=== PATIENT | male | born 1990 | race Caucasian/White ===

== ENCOUNTER 2024-02-15 01:04 | Emergency (ER) | payer OTHER, SELFPAY ==
[2024-02-15] VITALS (10 sets, daily range): BP systolic 111–153; BP diastolic 68–97; PULSE 92–202; RESP 18–20; TEMP 36.7; O2SAT 98–100; BMI 27.7
--- NOTE | 2024-02-15 | ECG_ITS ---
Test Reason : techy Blood Pressure : / mmHG Vent. Rate : 123 BPM Atrial Rate : 123 BPM P-R Int : 144 ms QRS Dur : 096 ms QT Int : 310 ms P-R-T Axes : 075 072 074 degrees QTc Int : 443 ms Sinus tachycardia Possible Left atrial enlargement Incomplete right bundle branch block Borderline ECG No previous ECGs available Referred By: Generic ED Physician Electronically Signed By:Alexis Malik
[2024-02-15 01:39] LABS: Basophils Absolute Auto 0.1 X10*3/uL (0.0-0.2); Basophils Percent Auto 0.3 % (0-2); Eosinophils Absolute Auto 0.1 X10*3/uL (0.0-0.4); Eosinophils Percent Auto 0.5 % (0-4); Hematocrit 44.6 % (42.0-52.0); Imm Gran Abs Auto 0.05 X10*3/uL (0.00-0.03); Imm Gran Pct Auto 0.3 % (0.0-0.4); Lymphocytes Absolute Auto 2.2 X10*3/uL (1.2-4.9); Lymphocytes Percent Auto 15.2 % (20-40); MANUAL DIFF FLAG NO; Mean Corpuscular HGB Conc 35.9 g/dl (31.0-36.0); Mean Corpuscular Hemoglobin 29.1 pg (27.0-33.0); Mean Corpuscular Volume 81.2 fL (80.0-98.0); Mean Platelet Volume 8.1 fL (9.4-12.4); Monocytes Absolute Auto 1.2 X10*3/uL (0.1-1.2); Monocytes Percent Auto 8.4 % (2-11); Neutrophils Absolute Auto 10.8 x10*3/uL (2.0-8.3); Neutrophils Percent Auto 75.3 % (45-73); Platelet Count 397 X10*3/uL (160-400); Red Blood Count 5.49 X10*6/uL (4.60-5.80); Red Cell Distribution Width 11.9 % (11.0-16.0); White Blood Count 14.4 X10*3/uL (4.8-10.8)
--- NOTE | 2024-02-15 01:43 | PC.NURSE ---
pt biba from home, a&ox4, respirations even and unlabored. pt reporting taking an edible, which he states he takes every day, when he developed sudden shortness of breath. ems reports on arrival pt was in SVT 220, pt was given 10/06/11 of adenosine in which pt broke into sinus tachy. pt 120s sinus tach on arrival, pt reports dizziness but denies chest pains. ems placed 20G in left hand. ekg obtained, 20G placed in right wrist, labs obtained and sent to lab.
[2024-02-15 01:55] LABS: Alanine Aminotransferase 18 U/L (0-40); Albumin Level 4.7 g/dL (3.5-5.0); Alkaline Phosphatase 53 U/L (39-117); Anion Gap 17 (12-20); Aspartate Amino Transferase 21 U/L (5-37); Bilirubin Total 0.7 mg/dL (0.0-1.0); Blood Urea Nitrogen 14 mg/dL (9-16); Carbon Dioxide 22 mmol/L (22-29); Chloride 100 mmol/L (96-108); Creatinine Clr Calc Pharmacy 113.1; Estimated Glomerular Filt Rate > 60; Glucose Random 132 mg/dL (60-115); Potassium 3.5 mmol/L (3.3-5.1); Sodium 135 mmol/L (135-145); Total Protein 7.4 g/dL (6.5-8.0)
--- NOTE | 2024-02-15 02:11 | ED.ARRPALP ---
HPI - Arrhythmia/Palpitations General Chief Complaint: Arrhythmia/Palpitations Stated Complaint: cp tachy sob Time Seen by Provider: 02/15/24 01:27 Source: patient Mode of arrival: EMS Limitations: no limitations History of Present Illness ED Provider: sundeep NÚÑEZ narrative: Patient's history of anxiety/depression on Wellbutrin with no history of cardiac arrhythmia or palpitation in the past around 19:00 patient noticed palpitation with near-syncope episode EMS came noticed SVT with heart rate in 200 received Adenocard 6 mg then 12 than 12 mg which broke the tachycardia to 120 sinus tachycardia patient feels anxious Related Data Previous Rx's ?Medication ?Instructions ?Recorded metoprolol tartrate 25 mg tablet 25 mg PO DAILY Tachycardia #60 tabs 02/15/24 Allergies Allergy/AdvReac Type Severity Reaction Status Date / Time No Known Allergies Allergy Verified 02/15/24 01:16 Review of Systems Review of Systems: Yes all other systems are reviewed and are negative PMFSH Social History Social History Smoked in Last 30 Days: No Use of substances other than those prescribed or required for medical reasons: Yes Substance Use Type: Marijuana Advance Directives: No Advance Directives Information Provided: No Do you have a plan to hurt others: No Plan Physical Exam Vital Signs: Vital Signs: Last Vital Signs Temp 98.0 F 02/15/24 01:10 Pulse 102 H 02/15/24 06:09 Resp 18 02/15/24 05:58 BP 113/70 02/15/24 05:35 Pulse Ox 98 02/15/24 06:09 O2 Del Method Room Air 02/15/24 06:09 BMI result Body Mass Index 27.7 Appearance: Alert. Oriented X3. No acute distress. Anxious Eyes: PERRLA, No Nystagmus ENT: Pharynx normal. Oral Mucosa moist Neck: Normal inspection. Neck supple. CVS: Sinus tachycardia no murmur rub or gallop. Pulses normal. Respiratory: No respiratory distress. Equal air entry bilateral, no wheezing/rales/rhonchi Abdomen: Soft and nontender. Bowel sounds are present, no mass palpable, no CVA tenderness Skin: Skin warm and dry. Normal skin color. Normal skin turgor. Extremities: No lower extremity edema. No calf tenderness Neuro: Oriented X 3. No motor deficit. No sensory deficit.No cerebellar signs , cranial nerves II-XII intact Medications Administered Discontinued Medications Generic Name Dose Route Start Last Admin Trade Name Lorna PRN Reason Stop Dose Admin Adenosine 6 mg 02/15/24 03:32 02/15/24 03:33 Adenosine 6 Mg/2 Ml Vial IVPUSH 02/15/24 03:33 6 mg STAT STA Administration Sodium Chloride 1,000 mls @ 999 mls/hr 02/15/24 02:14 02/15/24 04:25 Ns IV 02/15/24 03:14 Infused .Q1H1M ONE Infusion Lorazepam 1 mg 02/15/24 02:14 02/15/24 02:29 Lorazepam 2 Mg/Ml Vial IVPUSH 02/15/24 02:15 1 mg ONCE ONE Administration Metoprolol Tartrate 5 mg 02/15/24 03:24 02/15/24 03:33 Metoprolol Tartrate 5 Mg/5 Ml Vial IVPUSH 02/15/24 03:25 5 mg ONCE ONE Administration Protocol Metoprolol Tartrate 25 mg 02/15/24 05:18 02/15/24 05:35 Metoprolol Tartrate 25 Mg Tablet PO 02/15/24 05:19 25 mg ONCE ONE Administration Protocol Medical Decision Making Medical Decision Making MDM Narrative: Patient with increased anxiety depression poor oral intake came with episode of SVT received Adenocard in the ER patient has again heart rate went to 200 range was given 6 mg of Adenocard and back to sinus rhythm during stay in the ER patient received 2 L of IV fluids still heart rate is ranging 100-110 patient advised to follow with psychiatrist about a Wellbutrin use which could cause the tachycardia also advised to drink at least 3 L of fluid a day and will give Lopressor 25 mg twice a day for tachycardia follow with human resources advisor Differential Diagnosis Differential Diagnoses: The differential diagnosis associated with the presentation includes AFib/SVT/sinus tachycardia Lab Data [facility] Lab Attestation statement: I reviewed the patient's lab results. 02/15/24 01:33 02/15/24 01:33 Labs: Lab Results 02/15/24 Range/Units 01:33 WBC 14.4 H (4.8-10.8) X10*3/uL RBC 5.49 (4.60-5.80) X10*6/uL Hgb 16.0 (14.0-18.0) g/dl Hct 44.6 (42.0-52.0) % MCV 81.2 (80.0-98.0) fL MCH 29.1 (27.0-33.0) pg MCHC 35.9 (31.0-36.0) g/dl RDW 11.9 (11.0-16.0) % Plt Count 397 (160-400) X10*3/uL MPV 8.1 L (9.4-12.4) fL Immature Gran % (Auto) 0.3 (0.0-0.4) % Neut % (Auto) 75.3 H (45-73) % Lymph % (Auto) 15.2 L (20-40) % [place] % (Auto) 8.4 (2-11) % Eos % (Auto) 0.5 (0-4) % Baso % (Auto) 0.3 (0-2) % Lymph # (Auto) 2.2 (1.2-4.9) X10*3/uL [place] # (Auto) 1.2 (0.1-1.2) X10*3/uL Eos # (Auto) 0.1 (0.0-0.4) X10*3/uL Baso # (Auto) 0.1 (0.0-0.2) X10*3/uL Abs Immat Gran (auto) 0.05 H (0.00-0.03) X10*3/uL Absolute Neuts (auto) 10.8 H (2.0-8.3) x10*3/uL Absolute Nucleated RBC 0.000 (0.0-0.012) X10*3/uL Nucleated RBC % (auto) 0.0 (0.0-0.2) /100WBC Sodium 135 (135-145) mmol/L Potassium 3.5 (3.3-5.1) mmol/L Chloride 100 (96-108) mmol/L Carbon Dioxide 22 (22-29) mmol/L Anion Gap 17 (12-20) BUN 14 (9-16) mg/dL Creatinine 1.09 (0.5-1.4) mg/dL Estim Creat Clear Calc 113.1 Estimated GFR > 60 Random Glucose 132 H (60-115) mg/dL Calcium 10.0 (8.4-10.2) mg/dL Total Bilirubin 0.7 (0.0-1.0) mg/dL AST 21 (5-37) U/L ALT 18 (0-40) U/L Alkaline Phosphatase 53 (39-117) U/L Troponin I High Sens 33.0 (<3.5-35.0) ng/L Total Protein 7.4 (6.5-8.0) g/dL Albumin 4.7 (3.5-5.0) g/dL Independent Interpretation I performed an independent interpretation of an: EKG Interpretation: Sinus tachycardia heart rate 123 beats per minute normal interval normal axis no acute STT wave changes Critical Care Time Critical Care Time Critical Care Time: Yes Total Critical Care Time: 45 Attestation: The patient was critically ill with a high probability of imminent or life threatening deterioration. I spent greater than 55???minutes of discontinuous time evaluating the patient,delivering critical care at the bedside, discussing and evaluating pertinent data with consultants. Critical care time does not include time spent performing separately billable procedures or teaching. Total time spent performing critical care was 45???minutes. Discharge Plan Discharge Clinical Impression: Sinus tachycardia, Supraventricular tachycardia Patient Disposition: Home, Self-Care Instructions: Supraventricular Tachycardia (ED), Tachycardia (ED) Additional Instructions: Discussed with your psychiatrist about Wellbutrin which you are taking that could be the cause for tachycardia may need to change medication Follow up with human resources advisor Report to the ER if persistent tachycardia more than 120 beats per minute Drink plenty of fluids at least 3 L a day Prescriptions: New metoprolol tartrate 25 mg tablet 25 mg PO DAILY Qty: 60 0RF Referrals: Gabino Fung MD [Physician] - 1 week Print Language: Uzbek
[2024-02-15] MEDS: 0.9 % Sodium Chloride 1,000 ML 999 ML IV (02:28)
[2024-02-15] MEDS: LORazepam 2 MG/ML VIAL 1 MG IVPUSH (02:29)
--- NOTE | 2024-02-15 02:31 | PC.NURSE ---
pt medicated per mar for anxiety at this time.
--- NOTE | 2024-02-15 03:27 | PC.NURSE ---
pt noted to be in SVT 200-202, at bedside, pt medicated per jun.
[2024-02-15] MEDS: Adenosine 6 MG/2 ML VIAL IVPUSH (03:33)
[2024-02-15] MEDS: Metoprolol Tartrate 5 MG/5 ML VIAL IVPUSH (03:33)
--- NOTE | 2024-02-15 03:38 | PC.NURSE ---
pt medicated per mar, pt noted to break and maintain a rhythm of sinus tachy 100-101bpm. pacer pads placed, crash cart at bedside. vss.
--- NOTE | 2024-02-15 04:25 | PC.NURSE ---
pt standing up at bedside, pt maintaining heart rate of 100-102 bpm.
[2024-02-15] MEDS: Metoprolol Tartrate 25 MG TABLET PO (05:35)
--- NOTE | 2024-02-15 06:10 | PC.NURSE ---
pt taken for ambulation trial around ed, pt maintained heart rate between 100-108.
== END 2024-02-15 06:50 | disposition home or self-care (01) ==
PROVIDERS: Emergency Provider Internal Medicine
DX: I47.10 Supraventricular tachycardia, unspecified (principal); I49.9 Cardiac arrhythmia, unspecified; R00.2 Palpitations; R07.89 Other chest pain; R06.02 Shortness of breath; R11.2 Nausea with vomiting, unspecified; F41.9 Anxiety disorder, unspecified; Z79.899 Other long term (current) drug therapy
CPT/HCPCS: 36415; 80053; 84484; 85025; 93005; 96361; 96374; 96375; 99284; 99285; J0153; J2060

== ENCOUNTER → 2024-02-15 01:17 | Outpatient (BNV) | payer OTHER, SELFPAY | PROVIDERS: Emergency Provider Internal Medicine; Visit Provider Internal Medicine Cardiovascular Disease | DX: R00.0 Tachycardia, unspecified (principal) | CPT/HCPCS: 93010 ==

== ENCOUNTER 2024-05-08 14:20 | Outpatient (AMB) | payer OTHER, SELFPAY ==
--- NOTE | 2024-05-08 14:25 | A.OFFVIS_ITS ---
Vital Signs 05/08/24 14:26 Height 6 ft 2 in Weight 204 lb 2.369 oz BMI 26.2 BP 120/60 Blood Pressure Location Lt brachial Position Sitting Pulse 94 Pulse Source Pulse Oximeter Intake Visit Reasons: [facility] [place] [facility] ED follow up (KM) Intake Note: [facility] [place] F/up Erisa Attorney Required: No Accompanied by: Self / Same As Patient Allergies No Known Allergies Allergy (Verified 02/15/24 01:16) Medication List - Last Reconciled 05/08/24 by RACHAEL Catalan bupropion HCl XL 150 mg PO DAILY bupropion HCl XL 300 mg PO DAILY buspirone 15 mg PO BID fluoxetine 60 mg PO QAM metoprolol tartrate 25 mg PO DAILY HPI HPI [facility] [place] [facility] ED follow up (KM): Details: Rafa is a 33-year-old male with past medical history of anxiety/depression, heart palpitations who recently had an episode of heart palpitations that persisted longer than his normal. He was feeling presyncope and called EMS. He was found to have NSVT, rate 220. He was treated with adenosine 6 mg followed by 12 mg with conversion to sinus tachycardia. Was transported to the [facility] emergency room for further evaluation. He was started on metoprolol and r eferred to Cardiology. Today he reports that he has had heart palpitations since he was approximately 13 years old. He has brief episodes of rapid heartbeats that occur randomly and with position changes, that he can usually control with holding his breath. He has never had a formal diagnosis but suspected SVT. 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 In order to better control his episodes he has reduced his caffeine intake to 2 per day. He has not drink alcohol. He recently had high stress levels due to a new work place and had his heart palpitations 3 days in a row. On the 3rd day the episode persisted prompting his EMS call. Once he was treated with adenosine he felt much better. He was discharged with metoprolol 25 mg daily but states that dose was not controlling his episodes. He had his dose increased to 50 mg daily by another provider. This dose has been controlling the palpitations better. When he has the rapid heartbeat his chest feels uncomfortable. He has no other episodes of chest discomfort. No shortness of breath, PND, orthopnea or edema. He has never had syncope before. He has no cardiac history beyond this. His grandfather has AF ib otherwise heart disease does not run in his family. He is on medications for anxiety and depression but tells me he has not had any medication adjustments in over a year. PFSH Family History Maternal Grandmother Paroxysmal A-fib Social History Alcohol intake: never Patient Tobacco Use Status: Never used Tobacco Review of Systems Const All systems reviewed & are unremarkable except as noted in HPI and below Denies chills, Denies fatigue, Denies fever(s), Denies frequent falls, Denies weakness, Denies weight gain and Denies weight loss ENT Denies dizziness Card Denies chest pain, Reports rapid heart rate, Denies leg edema, Denies lightheadedness, Reports palpitations, Denies dyspnea and Denies dyspnea on exertion Resp Denies cough, Denies dyspnea and Denies dyspnea on exertion GI Denies hematochezia Musc Denies abnormal gait, Denies muscle weakness, Denies numbness, Denies radiating pain into limb and Denies tingling Neuro Denies abnormal gait, Denies dizziness, Denies frequent falls, Denies numbness, Denies tingling and Denies weakness Endo Denies fatigue and Reports palpitations Physical Exam Vital Signs: Last Vital Signs Pulse 94 05/08/24 14:26 BP 120/60 05/08/24 14:26 BMI result Body Mass Index 26.2 Const General: cooperative, healthy appearing, comfortable and no acute distress Orientation/consciousness: patient oriented x3 Neck Neck: Yes normal visual inspection Resp Effort & Inspection: normal respiratory effort Auscultation: clear to auscultation bilaterally, no rales, no rhonchi and no wheezes Cardio Jugular venous distension: no JVD Rate: regular rate Rhythm: regular rhythm Heart sounds: S1 normal heart sound present, S2 normal heart sound present, no murmurs and no rubs Neuro General: patient oriented x3 Extrem General: Yes normal to inspection and No no pedal edema Psych Appearance: grossly normal Mental Status: mental status grossly normal Speech and movement: Normal speech and movement present Assessment & Plan Assessment & Plan (1) Supraventricular tachycardia: Code(s): I47.10 - Supraventricular tachycardia, unspecified Category: Medical Plan: History of heart palpitations. His description is consistent with a sudden start and stop of tachycardia. He is typically able to hold his breath and control the episodes. More recently he was under high stress and EMS note indicates that he had a 100 mg edible 1 hour prior to having some palpitations and presyncope. EMS was called and he was noted to have SVT, rate 220. He did require adenosine 6 mg followed by 12 mg to convert the rhythm to sinus tachycardia. ER evaluation showed no acute abnormalities. His EKG there showed sinus tach, possible left atrial enlargement, incomplete right bundle branch block, rate 123. He was discharged with metoprolol tartrate 25 mg once daily. He said he was having breakthrough palpitations and his dose has since been increased to 50 mg daily which is working better. Will have him continue that dose. Reviewed the findings of SVT and he states understanding. Discussed reduction in caffeinated beverages. Reviewed vagal maneuvers. Will check a Holter monitor to assess for recurrent SVT. Will check an echocardiogram to assess for structural heart disease. Will check an exercise stress test to evaluate for any ischemia as he has had discomfort in his chest with his last episode. Plan to review test results and likely send him for SVT ablation. He is agreeable to this plan. Cardiology follow-up 4-6 weeks, sooner if needed (2) Sinus tachycardia: Code(s): R00.0 - Tachycardia, unspecified Category: Medical Plan: As above Plan Time spent on chart review, documentation, interview and assessment Orders: Orders CA stress test Today I47.10 - Supraventricular tachycardia, unspecified CA echo transthoracic complete Today I47.10 - Supraventricular tachycardia, unspecified TSH reflex Free T4 Today I47.10 - Supraventricular tachycardia, unspecified ECG 3 day holter monitor Today I47.10 - Supraventricular tachycardia, unspecified Coding Level of Care Code New Pt Level 4 (43346) Complex EM visit Add On G2211 Diagnoses Supraventricular tachycardia I47.10 Sinus tachycardia R00.0 Time Spent (min) 36
[2024-05-08 14:26] VITALS: BP 120/60; PULSE 94; BMI 26.2
== END 2024-05-08 14:54 | disposition home or self-care (01) ==
PROVIDERS: Visit Provider Nurse Practitioner Family
DX: I47.10 Supraventricular tachycardia, unspecified (principal)
CPT/HCPCS: 99204

== ENCOUNTER → 2024-05-23 08:06 | Outpatient (REF) | payer OTHER, SELFPAY ==
--- NOTE | 2024-05-23 08:11 | CA_ITS ---
Acquisition Time: 2024-05-23 08:42:44 Total Exercise Time: 00:09:42 Test Indications: NSVT Medications: SEE H&P Protocol: CORINA Max HR: 153 BPM 81% of Pred: 187 BPM Max BP: 154/60 mmHG Max Work Load: 11.2 METS Exercise Stress Test with exercise 9 mins 42 secs of Corina Protocol, achieving 81% MPHR, with reports of moderate SOB and mild dizziness, without any arrythmias, with normotensive response to exercise. Without EKG changes meeting criteria for ischemia. In recovery, dizziness resolved quickly and breathing returned to baseline. Test reviewed with Dr. Andino. Referred By: Janice Cerrato Electronically Signed By: Loco Menjivar
--- NOTE | 2024-05-23 08:11 | CA_ITS ---
Transthoracic Echocardiogram Patient (Last, First, Middle): Rafa Jackson, Gender: Male Date of : 1990 Age: 34 Procedure Date: 05/23/2024 Procedure Type: Transthoracic Echocardiogram Location: OP Height: 187.96 cm Weight: 92.53 kg BSA: 2.19 m2 Heart Rate: bpm BP: 120 / 60 mmHg Steel Sash Erector: JOSE MARIA Referring MD: Janice Cerrato SPEED READING TEACHERHugo Symptoms: I47.10 - Supraventricular tachycardia, unspecified Study Quality: Adequate ECG Rhythm: Sinus Conclusions: - The left ventricular systolic function is normal. The visually estimated ejection fraction is between 55-60%. - No obvious valvular pathology seen on this study. Findings Left Ventricle Normal left ventricular cavity size. There is normal left ventricular wall thickness. The left ventricular systolic function is normal. The visually estimated ejection fraction is between 55-60%. There is no evidence of regional wall motion abnormalities. Diastolic function is normal for age. Right Ventricle Normal right ventricular cavity size and systolic function. Atria Both atria are normal in size. Aortic Valve The aortic valve was not well visualized. There is no aortic valve stenosis. There is trace (trivial) aortic valve regurgitation. Mitral Valve The mitral valve appears normal. There is mild mitral valve regurgitation. There is no mitral valve stenosis. Pulmonic Valve The pulmonic valve is likely normal. Tricuspid Valve There is trace tricuspid valve regurgitation. There is no evidence of pulmonary hypertension. Great Vessels The sinuses of valsalva and sino tubular ridge are normal in size. Venous The inferior vena cava is normal in size and collapses greater than 50% with inspiration. Pericardium/Pleural There is no evidence of pericardial effusion. Prior Study Comparison No prior study available for comparison. Recommendations, Care & Conclusions No obvious valvular pathology seen on this study. Measurements 2D Linear Measurements IVSd: 0.81 0.6-0.9/0.6-1.0 cm LVIDd: 4.44 3.9-5.3/4.2-5.9 cm LVIDd Index: 2.03 2.4-3.2/2.2-3.1 cm/m2 LVIDs: 3.33 2.0-3.6 cm LVPWd: 0.87 0.7-1.1 cm LA Diam: 2.70 2.7-3.8/3.0-4.0 cm LAIDs Index: 1.23 1.5-2.3 cm/m2 LV Mass: 146.31 67-162/88-224 g LV Mass Index: 66.81 43-95/49-115 g/m2 LVOT Diam: 2.20 3.0+(-)1.3 cm 2D Systolic Function EF 4C: 60.90 >55% EF 2C: 59.30 >55% EF BiP: 59.60 >55% Mitral Valve MV Pk E: 0.88 MV PK A: 0.83 MV Decel Time: 231.00 E/A: 1.10 E'Lateral: 15.40 E'Medial: 9.90 E/E' Med: 8.90 E/E' Lat: 5.70 PHT: 68.00 MVA PHT: 3.24 Decel Hawkins: 3.82 Aortic Valve AoV Pk Cade: 1.15 AoV Mn Cade: 0.77 AoV VTI: 0.25 AoV Pk Grad: 5.00 Aov Mn Grad: 3.00 ARIANNE Cont.VTI: 3.23 LVOT LVOT Pk Cade: 1.00 LVOT Mn Cade: 0.71 LVOT VTI: 0.21 LVOT Pk Grad: 4.00 LVOT Mn Grad: 2.00 LVOT Diam: 2.20 LVOT Area: 3.80 Diastolic Function MV Pk E: 0.88 MV Pk A: 0.83 E/A: 1.10 E'Medial: 9.90 E/E' Med: 8.90 E' Laterial: 15.40 E/E' Lat: 5.70 Right Ventricle TAPSE (mm): 26.50 TVS' Cade: 13.30 Tricuspid Valve TR Pk Cade: 1.82 TR Pk Grad: 13.00 RA Press: 3.00 RVSP: 16.00 Great Vessels Aorta Sinus of Valsalva: 3.64 2.0-3.[address] [place]: 2.88 1.7-3.4 cm Updated in Other Vendor System with Status of Final Aleksey Andino MD electronically signed on 05/24/2024 11:51:56 AM with status of Final
== END ==
LOC: HO.CARD 08:06
PROVIDERS: Visit Provider Nurse Practitioner Family
DX: I47.10 Supraventricular tachycardia, unspecified (principal)
CPT/HCPCS: 93017; 93242; 93306

== ENCOUNTER 2024-06-25 00:36 | Emergency (ER) | payer OTHER, SELFPAY ==
--- NOTE | 2024-06-25 | ECG_ITS ---
Test Reason : RAPID HEARTBEAT Blood Pressure : */* mmHG Vent. Rate : 91 BPM Atrial Rate : 91 BPM P-R Int : 156 ms QRS Dur : 96 ms QT Int : 362 ms P-R-T Axes : 66 51 77 degrees QTcB Int : 445 ms Normal sinus rhythm Normal ECG When compared with ECG of 15-Feb-2024 01:17, Incomplete right bundle branch block is no longer Present Referred By: Generic ED Physician Electronically Signed By: Alexis Malik
--- NOTE | ~2024-06-25 | XR_ITS ---
CLINICAL HISTORY: sob 1 view chest x-ray Comparison: None Findings: The lungs are clear. Normal size heart. No acute fracture. IMPRESSION: 1. No acute findings. This document has been electronically signed by: Ranjith Clark MD on 06/25/2024 01:19:34
[2024-06-25 00:39] VITALS: BP 133/78; PULSE 95; RESP 18; TEMP 36.3; O2SAT 100; BMI 26.8
[2024-06-25 00:56] LABS: MANUAL DIFF FLAG NO
[2024-06-25 00:57] LABS: Basophils Absolute Auto 0.1 X10*3/uL (0.0-0.2); Basophils Percent Auto 0.4 % (0-2); Eosinophils Absolute Auto 0.1 X10*3/uL (0.0-0.4); Eosinophils Percent Auto 1.1 % (0-4); Hematocrit 39.9 % (42.0-52.0); Hemoglobin 13.8 g/dl (14.0-18.0); Imm Gran Abs Auto 0.03 X10*3/uL (0.00-0.03); Imm Gran Pct Auto 0.2 % (0.0-0.4); Lymphocytes Absolute Auto 2.5 X10*3/uL (1.2-4.9); Mean Corpuscular HGB Conc 34.6 g/dl (31.0-36.0); Mean Corpuscular Hemoglobin 28.7 pg (27.0-33.0); Mean Platelet Volume 8.1 fL (9.4-12.4); Monocytes Percent Auto 7.6 % (2-11); Neutrophils Absolute Auto 8.9 x10*3/uL (2.0-8.3); Neutrophils Percent Auto 70.7 % (45-73); Platelet Count 376 X10*3/uL (160-400); Red Blood Count 4.81 X10*6/uL (4.60-5.80); White Blood Count 12.6 X10*3/uL (4.8-10.8)
[2024-06-25 01:23] LABS: Alanine Aminotransferase 20 U/L (0-40); Albumin Level 4.3 g/dL (3.5-5.0); Anion Gap 15 (12-20); Aspartate Amino Transferase 26 U/L (5-37); Bilirubin Total 0.4 mg/dL (0.0-1.0); Blood Urea Nitrogen 16 mg/dL (9-16); Calcium 9.5 mg/dL (8.4-10.2); Carbon Dioxide 23 mmol/L (22-29); Chloride 99 mmol/L (96-108); Creatinine Clr Calc Pharmacy 103.5; Estimated Glomerular Filt Rate > 60; Glucose Random 115 mg/dL (60-115); Potassium 3.9 mmol/L (3.3-5.1); Sodium 133 mmol/L (135-145); Total Protein 7.4 g/dL (6.5-8.0); Troponin-I High Sensitivity < 2.7 ng/L (<3.5-35.0)
--- NOTE | 2024-06-25 02:04 | ED.ARRPALP ---
HPI - Arrhythmia/Palpitations General Chief Complaint: Arrhythmia/Palpitations Stated Complaint: SOB Time Seen by Provider: 06/25/24 02:04 Source: patient Mode of arrival: ambulatory Limitations: no limitations History of Present Illness ED Provider: HPI narrative: Patient's history of SVT anxiety around mid while watching TV noticed all of a sudden palpitation around mid night similar to that in the past which lasted for 30 minutes patient took metoprolol 25 mg at 21:00 at this time patient heart rate is 86 feeling much better no chest pain no shortness a breath did not drink much coffee yesterday Related Data Home Medications ?Medication ?Instructions ?Recorded ?Confirmed bupropion HCl 150 mg 24 hr tablet, 150 mg PO DAILY 05/08/24 05/08/24 extended release bupropion HCl 300 mg 24 hr tablet, 300 mg PO DAILY 05/08/24 05/08/24 extended release buspirone 15 mg tablet 15 mg PO BID 05/08/24 05/08/24 fluoxetine 20 mg capsule 60 mg PO QAM 05/08/24 05/08/24 Previous Rx's ?Medication ?Instructions ?Recorded metoprolol tartrate 25 mg tablet 25 mg PO DAILY Tachycardia #60 tabs 05/30/24 Allergies Allergy/AdvReac Type Severity Reaction Status Date / Time No Known Allergies Allergy Verified 06/25/24 00:41 Review of Systems Review of Systems: Yes all other systems are reviewed and are negative [facility] Family History Family History Maternal Grandmother Paroxysmal A-fib Social History Social History Alcohol intake: never Patient Tobacco Use Status: Never used Tobacco Advance Directives: No Do you have a plan to hurt others: No Plan Physical Exam Vital Signs: Vital Signs: Last Vital Signs Temp 97.4 F 06/25/24 00:39 Pulse 95 06/25/24 00:39 Resp 18 06/25/24 00:39 BP 133/78 06/25/24 00:39 Pulse Ox 100 06/25/24 00:39 O2 Del Method Room Air 06/25/24 00:39 BMI result Body Mass Index 26.8 Appearance: Alert. Oriented X3. No acute distress. Eyes: PERRLA, No Nystagmus ENT: Pharynx normal. Oral Mucosa moist Neck: Normal inspection. Neck supple. CVS: Normal heart rate and rhythm. Pulses normal. Respiratory: No respiratory distress. Equal air entry bilateral, no wheezing/rales/rhonchi Abdomen: Soft and nontender. Bowel sounds are present, no mass palpable, no CVA tenderness Skin: Skin warm and dry. Normal skin color. Normal skin turgor. Extremities: No lower extremity edema. No calf tenderness Neuro: Oriented X 3. No motor deficit. No sensory deficit.No cerebellar signs , cranial nerves II-XII intact Medical Decision Making Medical Decision Making [facility] Narrative: Patient with SVT on metoprolol came here with similar episode with lasted for 30 minutes labs are stable by the time patient arrived patient in sinus rhythm will discharge patient home asymptomatic at this time advised to decrease caffeine intake Lab Data [facility] Lab Attestation statement: I reviewed the patient's lab results. 06/25/24 00:51 06/25/24 00:51 Labs: Lab Results 06/25/24 Range/Units 00:51 WBC 12.6 H (4.8-10.8) X10*3/uL RBC 4.81 (4.60-5.80) X10*6/uL Hgb 13.8 L (14.0-18.0) g/dl Hct 39.9 L (42.0-52.0) % MCV 83.0 (80.0-98.0) fL MCH 28.7 (27.0-33.0) pg MCHC 34.6 (31.0-36.0) g/dl RDW 12.0 (11.0-16.0) % Plt Count 376 (160-400) X10*3/uL MPV 8.1 L (9.4-12.4) fL Immature Gran % (Auto) 0.2 (0.0-0.4) % Neut % (Auto) 70.7 (45-73) % Lymph % (Auto) 20.0 (20-40) % [place] % (Auto) 7.6 (2-11) % Eos % (Auto) 1.1 (0-4) % Baso % (Auto) 0.4 (0-2) % Lymph # (Auto) 2.5 (1.2-4.9) X10*3/uL [place] # (Auto) 1.0 (0.1-1.2) X10*3/uL Eos # (Auto) 0.1 (0.0-0.4) X10*3/uL Baso # (Auto) 0.1 (0.0-0.2) X10*3/uL Abs Immat Gran (auto) 0.03 (0.00-0.03) X10*3/uL Absolute Neuts (auto) 8.9 H (2.0-8.3) x10*3/uL Absolute Nucleated RBC 0.000 (0.0-0.012) X10*3/uL Nucleated RBC % (auto) 0.0 (0.0-0.2) /100WBC Sodium 133 L (135-145) mmol/L Potassium 3.9 (3.3-5.1) mmol/L Chloride 99 (96-108) mmol/L Carbon Dioxide 23 (22-29) mmol/L Anion Gap 15 (12-20) BUN 16 (9-16) mg/dL Creatinine 1.18 (0.5-1.4) mg/dL Estim Creat Clear Calc 103.5 Estimated GFR > 60 Random Glucose 115 (60-115) mg/dL Calcium 9.5 (8.4-10.2) mg/dL Magnesium 2.0 (1.6-2.6) mg/dL Total Bilirubin 0.4 (0.0-1.0) mg/dL AST 26 (5-37) U/L ALT 20 (0-40) U/L Alkaline Phosphatase 67 (39-117) U/L Troponin I High Sens < 2.7 D (<3.5-35.0) ng/L Total Protein 7.4 (6.5-8.0) g/dL Albumin 4.3 (3.5-5.0) g/dL Independent Interpretation I performed an independent interpretation of an: EKG Interpretation: Normal sinus rhythm heart rate 91 beats per minute normal interval normal axis no acute ST-T no acute ischemia Discharge Plan Discharge Clinical Impression: Supraventricular tachycardia Patient Disposition: Home, Self-Care Instructions: Supraventricular Tachycardia (ED) Additional Instructions: Rest at home Take medication metoprolol as needed per wheel borer advised for palpitation Decreased caffeine intake Prescriptions: No Action metoprolol tartrate 25 mg tablet 25 mg PO DAILY Qty: 60 2RF bupropion HCl 300 mg tablet extended release 24 hr 300 mg PO DAILY buspirone 15 mg tablet 15 mg PO BID fluoxetine 20 mg capsule 60 mg PO QAM bupropion HCl 150 mg tablet extended release 24 hr 150 mg PO DAILY Print Language: Solomon Islander
[2024-06-25 02:22] LABS: Alkaline Phosphatase 67 U/L (39-117)
[2024-06-25 02:43] VITALS: BP 106/62; PULSE 81; RESP 16; TEMP 36.7; O2SAT 98
[2024-06-25 02:44] VITALS: BP 106/62; PULSE 81; RESP 16; TEMP 36.7; O2SAT 98
== END 2024-06-25 02:45 | disposition home or self-care (01) ==
PROVIDERS: Emergency Provider Internal Medicine
DX: I47.10 Supraventricular tachycardia, unspecified (principal); I49.9 Cardiac arrhythmia, unspecified; R00.2 Palpitations; Z79.899 Other long term (current) drug therapy
CPT/HCPCS: 36415; 71045; 80053; 83735; 84484; 85025; 93005; 99283

== ENCOUNTER → 2024-06-25 00:45 | Outpatient (BNV) | payer OTHER, SELFPAY | PROVIDERS: Emergency Provider Internal Medicine; Visit Provider Internal Medicine Cardiovascular Disease | DX: R00.0 Tachycardia, unspecified (principal) | CPT/HCPCS: 93010 ==

== ENCOUNTER → 2024-06-25 01:07 | Outpatient (BNV) | payer OTHER, SELFPAY | PROVIDERS: Visit Provider Radiology Diagnostic Radiology | DX: R06.02 Shortness of breath (principal) | CPT/HCPCS: 71045 ==

== ENCOUNTER 2024-09-25 08:23 | Outpatient (AMB) | payer OTHER, SELFPAY ==
[2024-09-25 08:30] VITALS: BP 124/70; PULSE 86; BMI 27.2
--- NOTE | 2024-09-25 08:30 | A.OFFVIS_ITS ---
Vital Signs 09/25/24 08:30 Height 6 ft 2 in Weight 211 lb 10.3 oz BMI 27.2 BP 124/70 Blood Pressure Location Lt brachial Position Sitting Pulse 86 Intake Visit Reasons: r/s 06/23-08/29 4-6 wks f/u ett/echo Intake Note: Follow-up stress and echo results feeling good Roadway Technician Required: No Allergies No Known Allergies Allergy (Verified 06/25/24 00:41) Medication List - Last Reconciled 09/25/24 by Janice Cerrato, MELIA-C bupropion HCl XL 150 mg PO DAILY bupropion HCl XL 300 mg PO DAILY buspirone 15 mg PO BID fluoxetine 60 mg PO QAM metoprolol tartrate 25 mg PO BID HPI HPI r/s 06/23-08/29 4-6 wks f/u ett/echo: Details: Rafa is a 34-year-old male with past medical history of anxiety/depression, heart palpitations who recently had an episode of heart palpitations that persisted longer than his normal. He was feeling presyncope and called EMS. He was found to have NSVT, rate 220. He was treated with adenosine 6 mg followed by 12 mg with conversion to sinus tachycardia. Was transported to the [facility] emergency room for further evaluation. He was started on metoprolol and referred to Cardiology. On last visit an echocardiogram, Holter and exercise stress test were ordered and he now presents for follow-up. Today he reports that he has been doing well since his last visit. He has had no recurrent heart palpitations. He has no chest discomfort, shortness of breath, lightheadedness. He continues to have a reduced amount of caffeine. He does no routine exercise. He is currently pleased with how he is feeling. He is thinking about ablation but not interested at this time. PFSH Family History Maternal Grandmother Paroxysmal A-fib Social History Alcohol intake: never Patient Tobacco Use Status: Never used Tobacco Review of Systems Const All systems reviewed & are unremarkable except as noted in HPI and below Denies chills, Denies fatigue, Denies fever(s), Denies frequent falls, Denies weakness, Denies weight gain and Denies weight loss ENT Denies dizziness Card Denies chest pain, Denies leg edema, Denies lightheadedness, Denies palpitations, Denies dyspnea, Denies dyspnea on exertion, Denies orthopnea and Denies other (loss of consciousness) Resp Denies cough, Denies dyspnea and Denies dyspnea on exertion GI Denies hematochezia and Denies change in stool character Musc Denies abnormal gait, Denies muscle weakness, Denies numbness, Denies radiating pain into limb and Denies tingling Neuro Denies abnormal gait, Denies dizziness, Denies frequent falls, Denies numbness, Denies tingling and Denies weakness Endo Denies fatigue and Denies palpitations Physical Exam Vital Signs: Last Vital Signs Pulse 86 09/25/24 08:30 BP 124/70 09/25/24 08:30 BMI result Body Mass Index 27.2 Const General: cooperative, healthy appearing, comfortable and no acute distress Orientation/consciousness: patient oriented x3 Neck Neck: Yes normal visual inspection Resp Effort & Inspection: normal respiratory effort Auscultation: clear to auscultation bilaterally, no rales, no rhonchi and no wheezes Cardio Jugular venous distension: no JVD Rate: regular rate Rhythm: regular rhythm Heart sounds: S1 normal heart sound present, S2 normal heart sound present, no murmurs and no rubs Neuro General: patient oriented x3 Extrem General: Yes normal to inspection and No no pedal edema Psych Appearance: grossly normal Mental Status: mental status grossly normal Speech and movement: Normal speech and movement present Assessment & Plan Assessment & Plan (1) Supraventricular tachycardia: Code(s): I47.10 - Supraventricular tachycardia, unspecified Category: Medical Plan: History of heart palpitations with recent episode requiring ER evaluation confirming SVT, rate 220. He did require adenosine 6 mg followed by 12 mg to convert the rhythm to sinus tachycardia. He was started on metoprolol then his dose was increased up to 50 mg daily for recurrent palpitations. An echocardiogram was done 1 12/13/2024 showing EF 55-60%, no valve abnormalities. Holter monitor done 05/23/2024 for 3 days shows sinus rhythm with average heart rate 78. Exercise stress test done 05/23/2024 with exercise 9 minutes, moderate shortness of breath, no EKG changes of ischemia. Test results reviewed with him in detail. At this time will change his metoprolol to extended release, 50 mg daily. He will further consider SVT ablation. Vagal maneuvers reviewed. Cardiology follow-up 6 months, sooner if needed. Plan During the consultation, we reviewed the diagnosis of Supraventricular Tachycardia (SVT) and its management options. I discussed the transition to metoprolol XL 50 mg once daily from the current BID regimen for improved compliance and effective control. Ablation was conveyed as a definitive solution with a high success rate for eliminating SVT by addressing the arrhythmic pathway. I emphasized the low risk of complications associated with the procedure and that although the procedure could preclude the need for ongoing medication, the patient expressed anxiety regarding surgical interventions. I affirmed that continued medical management was reasonable while SVT remains well-controlled, and the patient agreed to revisit the consideration of ablation at a later date. We agreed on follow-up in six months unless earlier evaluation is desired to pursue ablation. Medications: New metoprolol succinate ER changed Metoprolol tartrate to Metoprolol XL 50 mg PO DAILY 90 tabs 3RF Patient Instructions: - Take metoprolol XL 50 mg once daily as prescribed. - Avoid caffeinated beverages and potential triggers for SVT. - Try vagal maneuvers if SVT symptoms occur. - Consider SVT ablation if episodes increase or become problematic. - Return in six months for follow-up or sooner if opting for ablation. - Seek medical attention if SVT symptoms worsen or become unmanageable. Patient was informed and verbally consented to the use of an ambient scribe for clinic note documentation during this visit. Visit time spent on chart review, interview, assessment, orders, documentation. Coding Level of Care Code Est Pt Level 3 (04686) Complex EM visit Add On G2211 Diagnoses Supraventricular tachycardia I47.10 Time Spent (min) 22
== END 2024-09-25 09:00 | disposition home or self-care (01) ==
LOC: HO.HCS 08:24
PROVIDERS: Visit Provider Nurse Practitioner Family
DX: I47.10 Supraventricular tachycardia, unspecified (principal)
CPT/HCPCS: 99213; G2211

== ENCOUNTER 2025-03-27 08:56 | Outpatient (AMB) | payer OTHER, SELFPAY ==
[2025-03-27 09:01] VITALS: BP 122/74; PULSE 86; BMI 29.5
--- NOTE | 2025-03-27 09:01 | A.OFFVIS_ITS ---
Vital Signs 03/27/25 09:01 Height 6 ft 2 in Weight 229 lb 11.547 oz BMI 29.5 BP 122/74 Blood Pressure Location Lt brachial Position Sitting Pulse 86 Pulse Source Pulse Oximeter Intake Visit Reasons: 6 mth f/iup Metal Riveter Required: No Accompanied by: Self / Same As Patient Allergies No Known Allergies Allergy (Verified 03/27/25 09:05) Medication List - Last Reconciled 03/27/25 by Janice Cerrato AIRPORT SHUTTLE DRIVER-C bupropion HCl XL 150 mg PO DAILY bupropion HCl XL 300 mg PO DAILY buspirone 15 mg PO BID fluoxetine 60 mg PO QAM metoprolol succinate ER 50 mg PO DAILY HPI HPI 6 mth f/iup: Details: Rafa is a 34-year-old male with past medical history of anxiety/depression, SVT episode 06/25/24 requiring adenosine with conversion to sinus tachycardia, who was on metoprolol and now presents for follow-up. Today he reports that he has been doing well since his last visit in September. Twice he has felt like his rapid heartbeat is about to start but it does not. He has not had any chest discomfort, shortness of breath, lightheadedness. He continues to have a reduced amount of caffeine. He does no routine exercise. He is currently pleased with how he is feeling. He is thinking about ablation but still not interested at this time. [facility] Family History Maternal Grandmother Paroxysmal A-fib Social History Alcohol intake: never Patient Tobacco Use Status: Never used Tobacco Review of Systems Const All systems reviewed & are unremarkable except as noted in HPI and below Denies daytime sleepiness, Denies difficulty sleeping, Denies snoring, Denies stops breathing during sleep and Denies weakness Card Denies chest pain, Denies rapid heart rate, Denies irregular heart rhythm, Denies claudication, Denies leg edema, Denies lightheadedness, Denies palpitations, Reports dyspnea, Denies dyspnea on exertion, Denies orthopnea, Denies paroxysmal nocturnal dyspnea and Denies slow heart rate Resp Denies cough, Reports dyspnea, Denies dyspnea on exertion and Denies snoring GI Reports no additional complaints, Denies hematochezia, Denies change in stool character and Denies dyspepsia Musc Denies abnormal gait, Denies muscle weakness and Denies numbness Neuro Denies abnormal gait, Denies numbness and Denies weakness Endo Denies palpitations Physical Exam Vital Signs: Last Vital Signs Pulse 86 03/27/25 09:01 BP 122/74 03/27/25 09:01 BMI result Body Mass Index 29.5 Const General: cooperative, healthy appearing, comfortable and no acute distress Orientation/consciousness: patient oriented x3 Neck Neck: Yes normal visual inspection Resp Effort & Inspection: normal respiratory effort Auscultation: clear to auscultation bilaterally, no crackles, no rales, no rhonchi and no wheezes Cardio Rate: regular rate Rhythm: regular rhythm Heart sounds: S1 normal heart sound present, S2 normal heart sound present, no gallops, no murmurs and no rubs Neuro General: patient oriented x3 Extrem General: Yes normal to inspection, No no pedal edema and No calf tenderness Psych Appearance: grossly normal Mental Status: mental status grossly normal Speech and movement: Normal speech and movement present Assessment & Plan Assessment & Plan (1) Supraventricular tachycardia: Code(s): I47.10 - Supraventricular tachycardia, unspecified Category: Medical Plan: History of heart palpitations with recent episode requiring ER evaluation. EMS notes confirming SVT, rate 220 that was treated with adenosine 6 mg followed by 12 mg to convert the rhythm to sinus tachycardia. He was started on metoprolol then his dose was increased up to 50 mg daily for recurrent palpitations. An echocardiogram was done 05/23/2024 showing EF 55-60%, no valve abnormalities. Holter monitor done 05/23/2024 for 3 days shows sinus rhythm with average heart rate 78. Exercise stress test done 05/23/2024 with exercise 9 minutes, moderate shortness of breath, no EKG changes of ischemia. No recurrent rapid palpitations since that time. Continue metoprolol. He will think about SVT ablation. Vagal maneuvers reviewed. Cardiology follow-up 6 months, sooner if needed. Plan I discussed with the patient that their heart is structurally normal, and the rapid heartbeat is caused by an extra electrical pathway. Given that the SVT is well-controlled with metoprolol and the patient is happy with how they feel, I recommended continuing the medication. I educated the patient on performing vagal maneuvers, such as bearing down or immersing the face in ice water, to terminate an episode should one occur. We also reviewed catheter ablation as a future treatment option if symptoms break through the medication. I explained that this procedure has a very short downtime, typically allowing a return to work within a few days. We will plan for a follow-up in six months, but the patient was advised to make an appointment sooner if needed Patient Instructions: - Continue to take your metoprolol medication as prescribed. - If you feel an episode of rapid heartbeat starting, you can try to stop it by taking a deep breath, holding it, and bearing down as if having a bowel movement. - Another technique is to fill a sink with ice water, hold your breath, and put your face in the water for a few seconds. - A procedure called catheter ablation is a future option to manage this rhythm. - Please schedule a follow-up appointment in six months. - If you start having more frequent symptoms or any other problems, please call our office to be seen sooner. Patient was informed and verbally consented to the use of an ambient scribe for clinic note documentation during this visit. Visit time spent on chart review, interview, assessment, orders, documentation. Coding Level of Care Code Est Pt Level 3 (39836) Complex visit Add On G2211 Diagnoses Supraventricular tachycardia I47.10 Time Spent (min) 24
--- OUTSIDE RECORDS SUMMARY | 2025-03-27 09:17 | XMS_ITS | Clinical Summary ---
Author Organization [facility] Address [address] [place] [address] [place] [id number] Phone Care Team Providers Care Manufacture Specialist Name Role Phone Pcp, Unknown Primary Care Provider Unavailabl e Allergies No known active allergies Encounters Date Type Department Care Team Description 01/22/2025 Telephone [facility] [address] [address] Ashley Plata PA 01/08/2025 10:40 AM EDT Telemedicine [facility] [address] [address] Ashley Plata PA Infertility male (Primary Dx) 12/28/2024 12:40 PM EDT Office Visit [facility] [address] [address] Annamarie Moore NP Male infertility (Primary Dx) from Last 3 Months Immunizations Immunization Administration Dates Next Due INFLUENZA, SPLIT VIRUS, TRIVALENT W/ PRESERVATIV E IM 02/07/2025 MMR 01/10/1996,08/23/1992 Social History Tobacco Use Types Packs/Day Years Used Date Smoking Tobacco: Never Assessed Education Answer Date Recorded Are you interested in more education? Not on katlyn e 11/22/2024 Are you concerned about learning? Not on file 11/22/2024 No 11/22/2024 No 11/22/2024 Digital Access Answer Date Recorded No 11/22/2024 No 11/22/2024 Reliable internet access at home? Not on file 11/22/2024 Device with a working camera? Not on file Sex and Gender Information Value Date Recorded Sex Assigned at Male 11/28/2024 2:51 PM EDT Legal Sex Male 2:06 PM EDT Gender Identity Male 11/28/2024 2:51 PM EDT Sexual Orientation Straight 11/28/2024 2: 51 PM EDT Plan of Treatment Health Maintenance Due Date Last Done Comments Adult Td,Tdap Booster 1991 DEPRESSION SCREENING 2003 SMOKING Hx and SMOKELESS TOB ACCO SCREENING 2004 HEPATITIS C SCREENING 2009 HIV ONE-TIME SCREENING (18-6 5 YEARS) 2009 COVID-19 VACCINE (2024-2 6 season) 2024 INFLUENZA VACCINE Completed 02/07/2025 HEPATITIS A VACCINES Aged Out No long er eligible based on patient's age to complete this topic HIB VACCINES Aged Out No longer eligi ble based on patient's age to complete this topic MENINGOCOCCAL VACCINES (ACWY) Aged Out No longer eligible based on patient's age to complete this topic MENINGOCOCCAL VACCINES (B) Aged Out N o longer eligible based on patient's age to complete this topic PNEUMOCOCCAL VACCINES (0-49 years) Aged Out No longer eligible based on patient's age to complete this topic Medical Devices Not on file Insurance [place] [id number] Care Teams Manufacture Specialist Relationship Specialty Start Date End Date Pcp, Unknown PCP - General 11/23/24 Additional Source Comments The information contained in this document represents components of the legal health record. It is not the complete legal health record.[facility]
== END 2025-03-27 09:20 | disposition home or self-care (01) ==
LOC: HO.HCS 08:56
PROVIDERS: Visit Provider Nurse Practitioner Family
DX: I47.10 Supraventricular tachycardia, unspecified (principal)
CPT/HCPCS: 99213; G2211